=== PATIENT | male | born 1980 | race Caucasian/White ===

== ENCOUNTER 2021-09-11 02:42 | Inpatient (IN) | payer OTHER ==
[~2021-09-11] VITALS: Ht 177.8 cm; Wt 72.6 kg
[2021-09-11] MEDS ORDERED: IV NS 0.9% 1,000 ML BAG IV ONE ×2 (03:00→06:30)
[2021-09-11] MEDS ORDERED: DICYCLOMINE HCL INJ 20 MG/2 ML AMPUL IM ONE ×2 (03:00→03:03)
[2021-09-11] MEDS ORDERED: ONDANSETRON HCL/PF 4 MG/2 ML VIAL IVP ONE (03:00)
--- NOTE | 2021-09-11 03:00 | NUR ---
[id number] FROM WORK C/O ABDOMINAL PAIN +N/V/D X2 HOURS. PT ALERT AND ORIENTED X3. AMBULATORY WITH NON LABORED BREATHING.
[2021-09-11] MEDS ORDERED: ONDANSETRON HCL/PF 4 MG/2 ML VIAL ONE ×2 (03:03→04:54)
--- NOTE | 2021-09-11 03:11 | NUR ---
BLOOD COLLECTED AND SENT TO LAB
[2021-09-11 03:13] LABS: BASOPHILS % (AUTO) 0.1 % (0.0-2.0); EOSINOPHILS % (AUTO) 1.2 % (0.0-6.0); HEMATOCRIT 44 % (39-51); HEMOGLOBIN 15.1 g/dL (13.5-17.5); LYMPHOCYTES # (AUTO) 0.9 K/uL (0.8-4.8); LYMPHOCYTES % (AUTO) 5.5 % (20.0-44.0); MEAN CORPUSCULAR HGB CONC 34 g/dl (31.0-36.0); MEAN CORPUSCULAR VOLUME 90 fL (80-96); MONOCYTES # (AUTO) 0.4 K/uL (0.1-1.30); MONOCYTES % (AUTO) 2.4 % (2.0-12.0); NEUTROPHILS # (AUTO) 15.4 K/uL (1.8-8.9); NEUTROPHILS % (AUTO) 90.8 % (43.0-81.0); PLATELET COUNT (AUTO) 385 K/uL (150-450); WHITE BLOOD COUNT (AUTO) 16.9 K/uL (4.3-11.0)
[2021-09-11 03:36] LABS: ALANINE AMINOTRANSFERASE 28 U/L (12-78); ALBUMIN 4.6 g/dL (3.4-5.0); ALKALINE PHOSPHATASE 73 U/L (46-116); ASPARTATE AMINOTRANSFERASE 20 U/L (15-37); BILIRUBIN,DIRECT 0.2 mg/dL (0.0-0.2); CALCIUM, SERUM 9.7 mg/dL (8.5-10.1); CARBON DIOXIDE 23 mmol/L (21-32); CHLORIDE 98 mmol/L (98-107); CREATININE 1.3 mg/dL (0.6-1.3); GLUCOSE 185 mg/dL (74-106); LIPASE 289 U/L (73-393); SODIUM SERUM 136 mmol/L (136-145); TOTAL PROTEIN, SERUM 8.6 g/dL (6.4-8.2); UREA NITROGEN, BLOOD 19 mg/dL (7-18)
[2021-09-11] MEDS ORDERED: ONDANSETRON HCL/PF 4 MG/2 ML VIAL IV ONE (05:00)
[2021-09-11] MEDS ORDERED: METOCLOPRAMIDE HCL 10 MG/2 ML VIAL ONE (05:11)
[2021-09-11] MEDS ORDERED: METOCLOPRAMIDE HCL 10 MG/2 ML VIAL IV ONE (05:30)
--- NOTE | 2021-09-11 06:23 | NUR ---
[facility] CALLED PER DR GIBSON
[2021-09-11] MEDS ORDERED: diphenhydrAMINE HCL 50 MG/ML VIAL IV ONE (06:30)
[2021-09-11] MEDS ORDERED: PROCHLORPERAZINE EDISYLATE 10 MG/2 ML VIAL IVP ONE (06:30)
[2021-09-11] MEDS ORDERED: PROCHLORPERAZINE EDISYLATE 10 MG/2 ML VIAL ONE (06:37)
[2021-09-11] MEDS ORDERED: diphenhydrAMINE HCL 50 MG/ML VIAL ONE (06:37)
--- NOTE | 2021-09-11 07:12 | NUR ---
EPIC PAGED PER DR GIBSON
[2021-09-11] MEDS ORDERED: MORPHINE SULFATE INJ 2 MG/ML DISP.SYRIN IV PRN (08:00)
[2021-09-11] MEDS ORDERED: Z GUARD REMEDY 2 OZ OINT TP PRN (08:00)
[2021-09-11] MEDS ORDERED: MAG HYDROX/AL HYDROX/SIMETH 30 ML UDC PO PRN (08:00)
[2021-09-11] MEDS ORDERED: ACETAMINOPHEN 325 MG TABLET PO PRN (08:00)
[2021-09-11] MEDS ORDERED: MAGNESIUM HYDROXIDE 30 ML UDC PO PRN (08:00)
[2021-09-11] MEDS ORDERED: IV NS 0.9% 1,000 ML IV PRN (08:00)
[2021-09-11] MEDS ORDERED: ONDANSETRON HCL/PF 4 MG/2 ML VIAL IVP PRN (08:00)
[2021-09-11] MEDS ORDERED: MORPHINE SULFATE INJ 2 MG/ML DISP.SYRIN ONE (08:13)
[2021-09-11] MEDS ORDERED: BUPR-54 PO (08:26)
[2021-09-11] MEDS ORDERED: CITA20TA16 PO (08:26)
[2021-09-11] MEDS ORDERED: MORPHINE SULFATE INJ 2 MG/ML DISP.SYRIN IV ONE (08:30)
[2021-09-11] MEDS ORDERED: PANTOPRAZOLE 40 MG VIAL IV SCH (09:00)
--- NOTE | 2021-09-11 10:51 | NUR ---
COVID ANTIGEN SWAB AND SENT TO LAB
[2021-09-11 11:48] VITALS: BP 146/92
--- NOTE | 2021-09-11 11:52 | NUR ---
REPORT GIVEN TO MICKEY MORA FOR [facility]
--- NOTE | 2021-09-11 14:41 | NUR ---
RN NOTES PT ARRIVED TO UNIT AT 1330 VIA WHEELCHAIR ACCOMPANIED BY Jose HORVATH FOR ADMISSION BUT HE REFUSED TO BE ADMITTED TO THE UNIT. PT IS A/O X4. ABLE TO MAKE NEEDS KNOWN. VERBALIZED THAT HE DIDN'T WANT TO STAY IN HERE IN THE HOSPITAL AND WANTS TO GO AGAINST MEDICAL ADVICE. EXPLAINED TO PT RISKS AND CONSEQUENCES INVOLVED IN LEAVING HOSPITAL ESPECIALLY IF HIS CURRENT MEDICAL CONDITION GETS WORST, ALSO THE BENEFITS OF CARE AND TREATMENTS, PT VERBALIZED UNDERSTANDING BUT STILL WANTED TO GO AMA. MADE AWARE AND IT'S OK FOR PT TO GO AMA. IV ACCESS ON LAC AND NAME ARMBAND REMOVED. PT LEFT UNIT AMBULATORY AT 1420 ACCOMPANIED BY LIME [facility]IL[facility] TENDER TO THE LOBBY. Addendum: 09/11/21 at 1518 by MICKEY TAPIA RN ADDENDUM: PATIENT SIGNED LEAVING THE HOSPITAL AGAINST MEDICAL ADVICE OR TREATMENT FORM AND AWARE OF CONSEQUENCES OF LEAVING AMA.
[2021-09-12] MEDS ORDERED: CITALOPRAM HYDROBROMIDE 20 MG TABLET PO SCH (09:00)
[2021-09-12] MEDS ORDERED: BUPROPION XL 150 MG TAB.ER.24 PO SCH (09:00)
== END 2021-09-11 14:20 | disposition left against medical advice (07) | DRG 391 ==
LOC: ER 02:43 → MED 12:01
PROVIDERS: ADMIT Internal Medicine; ATTEND Internal Medicine
DX: A09 Infectious gastroenteritis and colitis, unspecified (principal); N17.0 Acute kidney failure with tubular necrosis; F12.188 Cannabis abuse with other cannabis-induced disorder
CPT/HCPCS: 36415; 80048-TC; 80076-TC; 83690-TC; 84484-TC; 85025-TC; 85730-TC; 87081-TC; C9803; G0378; J0500; J0780; J1200; J2270; J2405; J2765; J7030